=== PATIENT | male | born 1990 | race Caucasian/White ===

== ENCOUNTER 2018-04-14 09:28 | Emergency (ER) | payer SELFPAY ==
[~2018-04-14] VITALS: Ht 182.9 cm; Wt 84.0 kg
[2018-04-14 09:31] VITALS: BP 124/67; PULSE 76; RESP 18; TEMP 98.1; O2SAT 99
[2018-04-14 10:00] VITALS: BP 124/65; PULSE 74; RESP 21; O2SAT 99
--- NOTE | 2018-04-14 10:05 | PD ---
HPI Chief Complaint: Chest Pain Time Seen by Provider: 10:02 Travel History International Travel<30 days: No Contact w/Intl Traveler<30days: No Traveled to known affect area: No History of Present Illness HPI 27-year-old male patient presents to the ER today with several days history of left-sided chest pains, he is on a road trip from [facility], and has driven for several days according to his significant other. He is complaining of some chest discomfort with shortness of breath, feels like it hurts with deep breath sometimes. He has been coughing but has been nonproductive. He denies any fevers or any other symptoms. Pain is described at 8 out of 10 right now. Modifying Factors: Unknown Associated Signs & Symptoms: Left-sided chest pains, dyspnea Risk Factors: Long road trip [facility] Past Medical History Medical other: Yes (SPINAL MENINGITIS A CHILD) Past Surgical History Surgical History: No Previous Surgery Social History Alcohol Use: No Tobacco Use: No Substance Use: Yes (MARIJUANA) Review of Systems Except as stated in HPI: all other systems reviewed are Neg Physical Exam Narrative GENERAL: Well-developed young male patient currently in mild distress. Awake and oriented 3. SKIN: Focused skin assessment warm/dry. HEAD: Atraumatic. Normocephalic. EYES: Pupils equal and round. No scleral icterus. No injection or drainage. ENT: No nasal bleeding or discharge. Mucous membranes pink and moist. NECK: Trachea midline. No JVD. CARDIOVASCULAR: Regular rate and rhythm. No murmur appreciated. RESPIRATORY: No accessory muscle use. Clear to auscultation. Breath sounds equal bilaterally. GASTROINTESTINAL: Abdomen soft, non-tender, nondistended. Hepatic and splenic margins not palpable. MUSCULOSKELETAL: No obvious deformities. No clubbing. No cyanosis. No edema. NEUROLOGICAL: Awake and alert. No obvious cranial nerve deficits. Motor grossly within normal limits. Normal speech. PSYCHIATRIC: Appropriate mood and affect; insight and judgment normal. Data Data Last Documented VS Vital Signs Date Time Temp Pulse Resp B/P (MAP) Pulse Ox O2 Delivery O2 Flow Rate FiO2 04/14/18 11:07 62 21 129/60 (83) 99 Room Air 04/14/18 09:31 98.1 Orders Orders Electrocardiogram (04/14/18 09:57) Basic Metabolic Panel (Bmp) (04/14/18 09:57) Ckmb (Isoenzyme) Profile (04/14/18 09:57) Complete Blood Count With Diff (04/14/18 09:57) D-Dimer (04/14/18 09:57) Magnesium (Mg) (04/14/18 09:57) Prothrombin Time / Inr (Pt) (04/14/18 09:57) Act Partial Throm Time (Ptt) (04/14/18 09:57) Troponin I (04/14/18 09:57) Ecg Monitoring (04/14/18 09:57) Bilateral Bp Monitoring (04/14/18 09:57) Iv Access Insert/Monitor (04/14/18 09:57) Oximetry (04/14/18 09:57) Oxygen Administration (04/14/18 09:57) Chest, Pa & Lat (04/14/18 09:57) CKMB (04/14/18 10:01) CKMB% (04/14/18 10:01) Admit Order (Ed Use Only) (04/14/18 11:55) Labs Laboratory Tests Test 04/14/18 10:01 White Blood Count 6.6 TH/MM3 Red Blood Count 5.26 MIL/MM3 Hemoglobin 16.2 GM/DL Hematocrit 48.4 % Mean Corpuscular Volume 91.9 FL Mean Corpuscular Hemoglobin 30.7 PG Mean Corpuscular Hemoglobin Concent 33.5 % Red Cell Distribution Width 13.6 % Platelet Count 201 TH/MM3 Mean Platelet Volume 9.4 FL Neutrophils (%) (Auto) 63.1 % Lymphocytes (%) (Auto) 24.0 % Monocytes (%) (Auto) 10.0 % Eosinophils (%) (Auto) 2.4 % Basophils (%) (Auto) 0.5 % Neutrophils # (Auto) 4.2 TH/MM3 Lymphocytes # (Auto) 1.6 TH/MM3 Monocytes # (Auto) 0.7 TH/MM3 Eosinophils # (Auto) 0.2 TH/MM3 Basophils # (Auto) 0.0 TH/MM3 CBC Comment DIFF FINAL Differential Comment Prothrombin Time 10.7 SEC Prothromb Time International Ratio 1.1 RATIO Activated Partial Thromboplast Time 27.3 SEC D-Dimer Quantitative (PE/DVT) LESS THAN 0.19 MG/L FEU Blood Urea Nitrogen 10 MG/DL Creatinine 0.92 MG/DL Random Glucose 91 MG/DL Calcium Level 8.8 MG/DL Magnesium Level 2.3 MG/DL Sodium Level 143 MEQ/L Potassium Level 4.2 MEQ/L Chloride Level 109 MEQ/L Carbon Dioxide Level 27.9 MEQ/L Anion Gap 6 MEQ/L Estimat Glomerular Filtration Rate 97 ML/MIN Total Creatine Kinase 113 U/L Creatine Kinase MB 1.2 NG/ML Troponin I LESS THAN 0.02 NG/ML MDM Medical Decision Making Medical Screen Exam Complete: Yes Emergency Medical Condition: Yes Medical Record Reviewed: Yes Interpretation(s) EKG shows NSR, no ST elevation or depression, and no arrhythmias. No significant T-wave inversions. Laboratory Tests Test 04/14/18 10:01 Monocytes (%) (Auto) 10.0 % (0.0-8.0) Chloride Level 109 MEQ/L (98-107) Troponin I LESS THAN 0.02 NG/ML Last 24 hours Impressions Chest X-Ray 04/14/18 0910 Signed Impressions: CONCLUSION: No acute cardiopulmonary disease Differential Diagnosis Musculoskeletal versus pneumonia versus PE versus ACS Narrative Course Chest x-ray did not show any signs of acute processes. EKG did not show dysrhythmias or ST changes. Cardiac enzymes are negative. D-dimer is negative. And at this point, have talked to the patient regarding findings, I have offered to admit him to chest pain center for further evaluation versus outpatient evaluation. At first, patient agreed to be admitted to chest pain center. However, after he waited for a while, wanted to be released to follow- up at home in [place] where he is headed now. 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 Return for any worsening symptoms or new issues as needed. The plan has been discussed with him and he states understanding Diagnosis Primary Impression: Chest pain Disposition: 01 DISCHARGE HOME Condition: Stable Nereyda Blanco MD Apr 14, 2018 10:05
[2018-04-14 10:11] LABS: AUTOMATED NEUTROPHIL # 4.2 TH/MM3 (1.8-7.7); BASOPHIL % 0.5 % (0.0-2.0); EOSINOPHIL # 0.2 TH/MM3 (0-0.4); EOSINOPHIL % 2.4 % (0.0-4.0); HEMATOCRIT 48.4 % (39.0-51.0); HEMOGLOBIN 16.2 GM/DL (13.0-17.0); LYMPHOCYTE # 1.6 TH/MM3 (1.0-4.8); MEAN CELL VOLUME 91.9 FL (80.0-100.0); MEAN CORPUSCULAR HEMOGLOBIN 30.7 PG (27.0-34.0); MEAN CORPUSCULAR HGB CONC 33.5 % (32.0-36.0); MEAN PLATELET VOLUME 9.4 FL (7.0-11.0); MONOCYTE # 0.7 TH/MM3 (0-0.9); NEUT % 63.1 % (16.0-70.0); PLATELET COUNT 201 TH/MM3 (150-450); RED BLOOD COUNT 5.26 MIL/MM3 (4.50-5.90); RED CELL DISTRIBUTION WIDTH 13.6 % (11.6-17.2); WHITE BLOOD COUNT 6.6 TH/MM3 (4.0-11.0)
[2018-04-14 10:25] LABS: INTERNATIONAL NORMALIZED RATIO 1.1 RATIO; PROTHROMBIN TIME - PATIENT 10.7 SEC (9.8-11.6)
[2018-04-14 10:36] LABS: D-DIMER LESS THAN 0.19 MG/L FEU (0.00-0.50); TROPONIN I LESS THAN 0.02 NG/ML (0.02-0.05)
[2018-04-14 10:49] LABS: BICARBONATE 27.9 MEQ/L (21.0-32.0); BLOOD UREA NITROGEN 10 MG/DL (7-18); CALCIUM 8.8 MG/DL (8.5-10.1); CHLORIDE 109 MEQ/L (98-107); CREATININE 0.92 MG/DL (0.60-1.30); GLOMERULAR FILTRATION RATE 97 ML/MIN (>89); GLUCOSE,RANDOM 91 MG/DL (74-106); MAGNESIUM 2.3 MG/DL (1.5-2.5); SODIUM (NA) 143 MEQ/L (136-145)
[2018-04-14 11:07] VITALS: BP 129/60; PULSE 62; RESP 21; O2SAT 99
--- NOTE | 2018-04-14 11:15 | RADRPT ---
EXAM DATE: 04/14/2018 11:13 AM EDT AGE/SEX: 27 years / Male INDICATIONS: Lower left chest pain. CLINICAL DATA: This is the patient's initial encounter. Patient reports that signs and symptoms have been present for 4 - 6 days and indicates a pain score of 4/10. MEDICAL/SURGICAL HISTORY: None. None. COMPARISON: No prior exams available for comparison. FINDINGS: PA and lateral views of the chest demonstrate the lungs to be symmetrically aerated without evidence of mass, infiltrate or effusion. The cardiomediastinal contours are unremarkable. Osseous structures are intact. CONCLUSION: No acute cardiopulmonary disease Electronically signed by: Red Luz MD 04/14/2018 11:14 AM EDT
[2018-04-14 13:12] VITALS: BP 121/63
--- NOTE | 2018-04-14 13:44 | EKG ---
Date Performed: 04/14/2018 Time Performed: 11:03:33 PTAGE: 27 years EKG: Sinus rhythm POSSIBLE RIGHT VENTRICULAR CONDUCTION DELAY BORDERLINE ECG NO PREVIOUS TRACING DOCTOR: Alvarado Dimas Interpretating Date/Time 04/14/2018 13:43:09
== END 2018-04-14 13:13 | disposition home or self-care (01) ==
LOC: NEPE 09:28 → UNDOADMOB 11:57 → NEDA 11:57 → UNDODISOB 13:13
DX: R07.9 Chest pain, unspecified (principal); R06.02 Shortness of breath; R05 Cough; R94.31 Abnormal electrocardiogram [ECG] [EKG]
CPT/HCPCS: 71046; 80048; 82550; 82552; 83735; 84484; 85025; 85379; 85610; 85730; 93005; 99285; G0378